=== PATIENT | female | born 1950 | race African-American/Black ===

== ENCOUNTER 2019-12-30 16:12 | Observation (INO) | payer MEDICARE, MEDICAID ==
[2019-12-30] MEDS ORDERED: HYDROcodone/Acetaminophen 5/325 mg Tablet ONE (16:38)
[2019-12-30 17:13] LABS: #Lymphocytes 1.6 thou/uL (1.20-3.40); #Neutrophils 6.6 thou/uL (1.40-6.50); %Basophils 0.3 % (0.0-1.0); %Eosinophils 0.2 % (0.0-10.0); %Neutrophils 71.5 % (42.0-75.0); Hemoglobin 10.7 g/dL (12.0-16.0); Mean Corpuscular HGB CONC 32.9 g/dL (32.0-36.0); Mean Corpuscular Hemoglobin 30.4 pg (27.0-31.0); Mean Corpuscular Volume 92.4 fL (78.0-98.0); Platelet Count 254 thou/uL (130-400); RBC Distribution Width 12.3 % (11.5-14.5); Red Blood Cell (RBC) Count 3.51 mill/uL (4.20-5.40); White Blood Cell (WBC) Count 9.3 thou/uL (4.8-10.8)
[2019-12-30 17:34] LABS: ALT (SGPT) 9 U/L (8-55); AST (SGOT) 11 U/L (5-34); Albumin 4.2 g/dL (3.4-4.8); Alkaline Phosphatase 117 U/L (40-110); Anion Gap 19 mmol/L (10-20); BUN (Urea Nitrogen) 27 mg/dL (9.8-20.1); Bilirubin, Total 0.4 mg/dL (0.2-1.2); CK (CPK) 66 U/L (29-168); Calc. Creatinine Clearance 0 mL/min (70-130); Calcium 9.9 mg/dL (7.8-10.44); Carbon Dioxide 22 mmol/L (23-31); Chloride 101 mmol/L (98-107); Estimated GFR-MDRD 28; Glucose 249 mg/dL (80-115); Potassium 4.2 mmol/L (3.5-5.1); Protein, Total 7.2 g/dL (6.0-8.3); Sodium 138 mmol/L (136-145)
--- NOTE | 2019-12-30 18:22 | RAD ---
RIGHT ELBOW FOUR VIEWS: History: Fall, pain. Comparison: None. FINDINGS: There is no specific joint effusion. Mild soft tissue swelling. Mildly impacted fracture of the lateral aspect of the radial neck. Chronic lateral and mediolateral epichonolitis. 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 IMPRESSION: Findings of a nondisplaced impacted fracture of the lateral margin of the radial neck. POS: HOME
--- NOTE | 2019-12-30 18:26 | RAD ---
LEFT FOOT THREE VIEWS: History: Pain Comparison: None FINDINGS: There is ossification of the adductor hallus tendon at the proximal phalanx base great toe. Non enthe sophytic changes of the calcaneus. No acute displaced fracture or malalignment. Enthesophytic changes of the peroneus brevis tendon at the fifth metatarsal tuberosity. IMPRESSION: Chronic findings. No acute displaced fracture or malalignment. POS: HOME
--- NOTE | 2019-12-30 18:27 | RAD ---
LEFT KNEE FOUR VIEWS: History: Fall, pain. Comparison: None. FINDINGS: Small joint effusion. No acute displaced fracture or malalignment. Mild medial compartment joint spac e narrowing. Proximal fibula is intact. IMPRESSION: Small effusion and adjacent soft tissue swelling likely from a contusion. No acute displaced fracture appreciated. POS: HOME
--- NOTE | 2019-12-30 20:19 | PDOC.FPRHP ---
- History of Present Illness Chief Complaint: Syncope History of Present Illness: 69yo F presents to the ED complaining of a syncopal event and fall in the last 2 days. Pt states 2 days ago she was getting up from the dinner table and made it a few feet before her vision went dark and she passed out. This was witnessed by her and he stated she was only down for a few seconds and immediately came back to being alert and oriented. Pt denies recalling any injuries from this event and did not tell her that she hit her head. The next day she was walking her dog when she got her feed crossed and fell onto and outstretched arm. Since then she has had left knee pain and right arm pain. She denies any LOC with this fall or head strike. Denies ever having syncope before. Denies any CP, SOB, diaphoresis with these episodes. No recent illnesses or sick contacts. ED Course: Received 5/325mg [place] - Allergies/Adverse Reactions Allergies Allergy/AdvReac Type Severity Reaction Status Date / Time No Known Drug Allergies Allergy Unverified 12/30/19 21:34 - Home Medications Medication Instructions Recorded Confirmed Type Albuterol Sulfate [Proair HFA] 2 inhaler NEB QID 12/30/19 12/30/19 History Bimatoprost [Lumigan] 1 drop EA EYE HS 12/30/19 12/30/19 History Carvedilol 1 tablet PO DAILY 12/30/19 12/30/19 History Colchicine 1 tablet PO PRN PRN 12/30/19 12/30/19 History Empagliflozin [Jardiance] 1 tablet PO DAILY 12/30/19 12/30/19 History Glimepiride [Amaryl] 1.5 tablet PO DAILY 12/30/19 12/30/19 History HYDROcodone/Acetaminophen 1 tablet PO QID 12/30/19 12/30/19 History [Hydrocodone-Acetamin 10-325 mg] Olmesartan/Hydrochlorothiazide 1 tablet PO BID 12/30/19 12/30/19 History [Olmesartan-Hctz 20-12.5 mg Tab] Olopatadine HCl [Pazeo] 1 drop EA EYE DAILY 12/30/19 12/30/19 History - History PMHx: DM II, HTN, HLD PSHx: x4 FHx: No significant Social: Denies any alcohol, tobacco, or illicit drug use - Review of Systems General: denies: fever/chills, weight/appetite/sleep changes Eyes: denies: eye pain, vision changes ENT: denies: nasal congestion, rhinorrhea Respiratory: denies: cough, shortness of breath Cardiovascular: denies: chest pain, palpitation, edema Gastrointestinal: denies: nausea, vomiting, diarrhea Genitourinary: denies: dysuria, polyuria Skin: denies: rashes, lesions Musculoskeletal: reports: pain (Right arm, left knee), swelling (left knee) Neurological: reports: syncope. denies: numbness, weakness Psychological: denies: anxiety, depression - Vital signs BP: 125/62, Pulse: 62, Resp: 17, Temp: 99.0 (Oral), Pain: 9, O2 sat: 98 on ( Room Air), Wt: 80.7 - Physical Exam Constitutional: NAD, awake, alert and oriented, well developed HEENT: normocephalic and atraumatic, EOMI Neck: supple, FROM Heart: RRR, normal S1/S2 Lungs: CTAB, no respiratory distress, good air movement Abdomen: soft, non-tender, bowel sounds present Musculoskeletal: normal structure -Musculoskeletal: Left knee swelling, decreased ROM 2/2 pain Right elbow painful ROM, no swelling or bruising Neurological: no focal deficit, CN II-XII intact, normal sensation Skin: no rash/lesions, capillary refill <2 seconds Heme/Lymphatic: no unusual bruising or bleeding, no purpura, no petechia Psychiatric: normal mood and affect, good judgment and insight, intact recent and remote memory FMR H&P: Results - Labs Result Diagrams: 12/31/19 04:23 12/31/19 04:23 Lab results: WBC 9.3 thou/uL (4.8-10.8) 12/30/19 16:58 Hgb 10.7 g/dL (12.0-16.0) L 12/30/19 16:58 Hct 32.4 % (36.0-47.0) L 12/30/19 16:58 MCV 92.4 fL (78.0-98.0) 12/30/19 16:58 Plt Count 254 thou/uL (130-400) 12/30/19 16:58 Neutrophils % 71.5 % (42.0-75.0) 12/30/19 16:58 Sodium 138 mmol/L (136-145) 12/30/19 16:58 Potassium 4.2 mmol/L (3.5-5.1) 12/30/19 16:58 Chloride 101 mmol/L (98-107) 12/30/19 16:58 Carbon Dioxide 22 mmol/L (23-31) L 12/30/19 16:58 BUN 27 mg/dL (9.8-20.1) H 12/30/19 16:58 Creatinine 2.13 mg/dL (0.6-1.1) H 12/30/19 16:58 Glucose 249 mg/dL (80-115) H 12/30/19 16:58 Calcium 9.9 mg/dL (7.8-10.44) 12/30/19 16:58 Total Bilirubin 0.4 mg/dL (0.2-1.2) 12/30/19 16:58 AST 11 U/L (5-34) 12/30/19 16:58 ALT 9 U/L (8-55) 12/30/19 16:58 Alkaline Phosphatase 117 U/L (40-110) H 12/30/19 16:58 Creatine Kinase 66 U/L (29-168) 12/30/19 16:58 Serum Total Protein 7.2 g/dL (6.0-8.3) 12/30/19 16:58 Albumin 4.2 g/dL (3.4-4.8) 12/30/19 16:58 - EKG Interpretation EK lead EKG shows normal sinus rhythm, Rate (beats per minute): 69, with no ectopics, Interpretation: normal EKG, Conduction normal, ST segments normal, T waves normal, [place] normal, Clinical impression: Normal EKG. - Radiology Interpretation Other Status: report reviewed by me (Left knee: Small effusion and adjacent soft tissue swelling likely from a contusion. No acute displaced fracture appreciated. Left foot: Chronic findings. No acute displaced fracture or malalignment. Right elbow: Findings of a nondisplaced impacted fracture of the lateral margin of the radial neck.) FMR H&P: A/P - Problem List (1) Radial neck fracture Current Visit: Yes Status: Acute Qualifiers: Encounter type: initial encounter Fracture type: closed Fracture alignment: nondisplaced Laterality: right Qualified Code(s): S52.134A - Nondisplaced fracture of neck of right radius, initial encounter for closed fracture (2) Acute kidney injury Current Visit: Yes Status: Acute Code(s): N17.9 - ACUTE KIDNEY FAILURE, UNSPECIFIED (3) Syncope due to orthostatic hypotension Current Visit: Yes Status: Acute Code(s): I95.1 - ORTHOSTATIC HYPOTENSION (4) DM hyperosmolarity type II, uncontrolled Current Visit: Yes Status: Acute Code(s): E11.00 - TYPE 2 DIAB W HYPROSM W/ O NONKET HYPRGLY-HYPROS COMA (N[facility]); E11.65 - TYPE 2 DIABETES MELLITUS WITH HYPERGLYCEMIA (5) Anemia Current Visit: Yes Status: Acute Code(s): D64.9 - ANEMIA, UNSPECIFIED - Plan Syncope - likely 2/2 orthostatic hypotension - Hx consistent with orthostasis - Include orthostatics in vitals - Will road test intermittently TOMEKA - Cr: 2.13 - No known renal disease hx - FeNa, UA, urine prot - Will hold jardiance, and JODIE/HCTZ combo - Avoid nephrotoxic drugs - Trend BMP - LR @ 150 DM II - Resume home glimepiride - A1c ordered - Mild and bedtime SSI - Hold jardiance Radial neck fracture - Immobilize right arm with sling - Consider ortho consult/call tomorrow for recs and f/u Anemia - Fe, Ferritin, TIBC IVF: LR @ 150 Diet: CC VTE: SCD Code: Full Dispo: Admit to tele obs for monitoring of renal function and hearth rate/ rhythm. ELOS <48hr PCP: [facility] FMR H&P: [place] - Pertinent history Pt reports getting up to get coffee in the kitchen and then she blacked out. Pt denied any chest pain, SOB prior. Denied any recent illness. Denied any fever or chills. Pt reports never having anything like this before. Pt denies ever having issues with kidneys that she knows of. - Pertinent findings Cardio: RRR, no murmurs or gallops Resp: CTA-B, no wheezes or crackles MSK: pt R. elbow mildly swollen. Pt has good ROM. No loss of sensation. Pt Left knee swollen. Has some decreased ROM due to pain. Ext: No edema noted - Plan Date/Time: 12/30/192013 I, Winston Simons, PGY-3, have evaluated this patient and agree with findings/ plan as outlined by tax services intern resident. Pertinent changes/additions are listed here. I have reviewed the above plan and made edits as needed. I agree with above. Will admit pt overnight for tele obs 2/2 syncopal episode. Will check orthostatic BP. Cr elevated. Will rehydrate with IVF and monitor. We will trend trops and further workup if they become elevated. At this time believe to be related to mild dehydration and TOMEKA. Addendum - Attending - Attending Attestation Date/Time: 12/30/19 [id number] I personally evaluated the patient and discussed the management with Dr. Roth I agree with the History, Examination, Assessment and Plan documented above with any addition or exceptions noted below - 69yo F with h/o DM, HTN, HLD presents to the ED after a syncopal event and fall in the last 2 days. Pt states 2 days ago she was getting up from the dinner table and made it a few feet before her vision went dark and she passed out. This was witnessed by her and he stated she was only down for a few seconds and immediately came back to being alert and oriented. Pt denies recalling any injuries from this event and did not tell her that she hit her head. The next day she was walking her dog when she got her feet crossed and fell onto and outstretched arm. Since then she has had left knee pain and right arm pain. She denies any LOC with this fall or head strike. Denies ever having syncope before. Denies any CP, SOB, diaphoresis with these episodes. No recent illnesses or sick contacts. PMH/PSH/Meds/SH reviewed and agree with resident's documentation. Afebrile VSS Exam repeated by me and agree with resident's findings. Labs: H/H= 10.7/32.4, Rb=306, K=4.2, BUN/Cr=27/2.13, Xdey=626, trop<0.010 X-ray right elbow - nondisplaced impacted fracture of lateral radial neck; left knee - small effusion and soft tissue swelling; left foot - chronic changes no acute findings. A/P: 1) Syncope - Place in obs. Possibly secondary to orthostasis- no h/o renal disease and has elevated Cr. Will check orthostatoc BP and hydrate overnight. Recheck labs in AM. 2) TOMEKA- will check urine studies then start IVfluids. Recheck labs in AM. 3) DM- monitor BG; hold mnetformin and jardiance for now.
[2019-12-30 20:49] LABS: Troponin I Less than 0.010 ng/mL (< 0.028)
[2019-12-30] MEDS ORDERED: Ondansetron ODT 4 MG TAB SL PRN (21:34)
[2019-12-30] MEDS ORDERED: Acetaminophen 325 MG TAB PO PRN ×2 (21:34→21:43)
[2019-12-30] MEDS ORDERED: Ondansetron PF 4 MG/2 ML Vial IVP PRN (21:34)
[2019-12-30] MEDS ORDERED: HYDROcodone/Acetaminophen 5/325 mg Tablet PO PRN (21:43)
[2019-12-30 23:10] LABS: Hemoglobin A1c 11.8 % (4.0-6.0)
[2019-12-30 23:27] LABS: Iron 16 ug/dL (50-170); Iron Binding Capacity, Total 220 mcg/dL (265-497)
[2019-12-30 23:47] LABS: Ferritin 401.35 ng/mL (10-291); Thyroid Stimulating Hormone 1.7987 uIU/mL (0.35-4.94)
[2019-12-30 23:48] LABS: Troponin I 0.011 ng/mL (< 0.028)
[2019-12-31] MEDS ORDERED: PROVENTIL INHALER 6.7 G (200 INHALATIONS) INH PRN (00:12)
[2019-12-31] MEDS: Lactated Ringer's 1,000 ML IV SCH ×4 (00:42→20:29)
[2019-12-31] MEDS ORDERED: Dextrose 5% in Water 1,000 ML IV PRN (00:43)
[2019-12-31] MEDS ORDERED: Dextrose 50% Abboject 50 ML SYRINGE SLOW IVP PRN (00:43)
[2019-12-31] MEDS ORDERED: HumaLOG 300 UNITS/3 ML VIAL SC PRN (00:43)
[2019-12-31 05:10] LABS: #Eosinphils 0.1 thou/uL (0.0-0.7); #Lymphocytes 2.4 thou/uL (1.20-3.40); #Neutrophils 5.3 thou/uL (1.40-6.50); %Basophils 0.4 % (0.0-1.0); %Eosinophils 0.7 % (0.0-10.0); %Lymphocytes 27.9 % (21.0-51.0); %Monocytes 11.2 % (0.0-10.0); %Neutrophils 59.9 % (42.0-75.0); Hemoglobin 10.6 g/dL (12.0-16.0); Mean Corpuscular HGB CONC 31.4 g/dL (32.0-36.0); Mean Corpuscular Hemoglobin 29.3 pg (27.0-31.0); Mean Corpuscular Volume 93.1 fL (78.0-98.0); Mean Platelet Volume 8.2 fL (7.4-10.4); Platelet Count 243 thou/uL (130-400); RBC Distribution Width 12.4 % (11.5-14.5); White Blood Cell (WBC) Count 8.8 thou/uL (4.8-10.8)
[2019-12-31 05:32] LABS: Anion Gap 17 mmol/L (10-20); BUN (Urea Nitrogen) 28 mg/dL (9.8-20.1); Calc. Creatinine Clearance 0 mL/min (70-130); Calcium 9.8 mg/dL (7.8-10.44); Carbon Dioxide 21 mmol/L (23-31); Chloride 103 mmol/L (98-107); Estimated GFR-MDRD 36; Glucose 166 mg/dL (80-115); Potassium 3.6 mmol/L (3.5-5.1); Sodium 137 mmol/L (136-145)
[2019-12-31 06:24] LABS: Bacteria/HPF None Seen HPF (None Seen); Bilirubin Negative (Negative); Blood, Urine Negative (Negative); Clarity Clear (Clear); Glucose, Urine (Dipstick) Greater than 1000 mg/dL (Negative); Leukocyte 250 Leu/uL (Negative); Nitrite Negative (Negative); Protein, Urine (Dipstick) Negative (Neg-Trace); RBC/HPF 0-3 HPF (0-3); Squamous Epithelial 0-3 HPF (0-3); Urobilinogen Normal mg/dL (Less than 2); WBC/HPF 21-50 HPF (0-3)
[2019-12-31 06:26] LABS: Urine Culture Reflex Yes Yes
[2019-12-31 06:45] LABS: Protein, Urine Random Quant Less than 10 mg/dL (1-14); Sodium, Urine 50 mmol/L (Not Available)
--- NOTE | 2019-12-31 06:55 | PDOC.FM ---
- Subjective Subjective: Patient resting in bed this morning, complains of left knee pain and right arm pain rated both 10 out of 10 in severity. Also states she feels thirsty. Denies ever having been on insulin in the past for DM management from PCP. Denies any fever, cough, congestion, SOB, chest pain, abdominal pain, n/v. Did state she felt a little dizzy before falling but does not remember much about why she may have fallen. - Objective MAR Reviewed: Yes Vital Signs & Weight: Vital Signs (12 hours) Temp Pulse Resp BP BP BP BP 12/31/19 03:19 99.1 F 66 14 160/72 H 12/31/19 00:59 99.0 F 15 171/76 H 12/31/19 00:00 12/30/19 23:53 99.0 F 61 15 184/81 H 12/30/19 21:43 161/68 H 146/73 H 147/69 H Pulse Ox 12/31/19 03:19 94 L 12/31/19 00:59 95 12/31/19 00:00 95 12/30/19 23:53 95 12/30/19 21:43 Weight Weight 78.018 kg Result Diagrams: 12/31/19 04:23 12/31/19 04:23 Phys Exam - Physical Examination Constitutional: NAD HEENT: sclera anicteric dry mucous membranes Neck: no JVD, supple Respiratory: no wheezing, clear to auscultation bilateral Cardiovascular: RRR, no significant murmur Gastrointestinal: soft, non-tender, positive bowel sounds Musculoskeletal: pulses present 2+ edema in left knee with TTP grossly. 1+ edema around right elbow. Neurological: normal sensation, moves all 4 limbs Psychiatric: normal affect, A&O x 3 Skin: no rash, normal turgor Dx/Plan (1) DM hyperosmolarity type II, uncontrolled Code(s): E11.00 - TYPE 2 DIAB W HYPROSM W/O NONKET HYPRGLY-HYPROS COMA ([facility]); E11.65 - TYPE 2 DIABETES MELLITUS WITH HYPERGLYCEMIA Status: Acute (2) Radial neck fracture Status: Acute Qualifiers: Encounter type: initial encounter Fracture type: closed Fracture alignment: nondisplaced Laterality: right Qualified Code(s): S52.134A - Nondisplaced fracture of neck of right radius, initial encounter for closed fracture (3) Syncope due to orthostatic hypotension Code(s): I95.1 - ORTHOSTATIC HYPOTENSION Status: Acute - Plan Plan: Patient is a 69 yo female with PMHx of DM2, HTN, HLD who presents after syncopal episode: #Syncope - likely 2/2 orthostatic hypotension - Hx consistent with orthostasis - Include orthostatics in vitals - Will road test intermittently #TOMEKA - Cr: 2.13 > 1.73 this AM, will continue IVF - No known renal disease hx - FeNa, UA, urine prot pending - Will hold jardiance, and JODIE/HCTZ combo - Avoid nephrotoxic drugs - Trend BMP - LR @ 150 #DM II - Resume home glimepiride - A1c 11.8% - Mild and bedtime SSI - Hold jardiance - Plan to start Lantus #Radial neck fracture - Immobilize right arm with sling - Consider ortho consult/call for recs and outpt f/u #Anemia - Fe 16 (low), Ferritin 401 (high), TIBC 220 (low) - consider starting iron supplement with Vitamin C IVF: LR @ 150 Diet: CC VTE: SCD Code: Full Dispo: Stable, Admit to tele obs for monitoring of renal function and hearth rate/rhythm. Anticipate discharge in <48hr. PCP: Anil Claudio Addendum - Attending - Attending Attestation Date/Time: 12/31/19 [id number] I personally evaluated the patient and discussed the management with Dr. Waldrop I agree with the History, Examination, Assessment and Plan documented above with any addition or exceptions noted below. Patient last contact with brother who passed of COVID was 5 months ago. No concern at this time. Monitor renal function. Possible d/c tomorrow.
[2019-12-31] MEDS: HYDROcodone/Acetaminophen 10/325 mg Tablet PO SCH ×4 (08:04→20:41)
[2019-12-31] MEDS ORDERED: Morphine 2 MG/ML SYRINGE SLOW IVP PRN (08:50)
[2019-12-31] MEDS ORDERED: Insulin Glargine 10 UNITS in Pre-Filled Syringe 1 EACH SC SCH (09:30)
[2019-12-31] MEDS: Ketotifen Fumarate 0.025% Ophth Soln 5 ml Bottle EA EYE SCH ×2 (10:14→20:43)
[2019-12-31] MEDS: Ferrous Sulfate 325 MG TAB PO SCH (10:15)
[2019-12-31] MEDS: Glimepiride 4 MG TAB PO SCH (10:16)
[2019-12-31] MEDS: Carvedilol 25 MG TAB PO SCH (10:17)
[2019-12-31] MEDS: Ascorbic Acid 500 mg Chewable Tablet PO SCH (10:23)
[2019-12-31] MEDS ORDERED: Albuterol Sulfate 2.5 mg/3 ml Neb NEB PRN (11:06)
[2019-12-31] MEDS: HumaLOG 300 UNITS/3 ML VIAL SC PRN (11:38)
[2019-12-31] MEDS ORDERED: Latanoprost 0.005% Ophth Soln 2.5 ml Bottle EA EYE SCH (21:00)
[2020-01-01] MEDS: Lactated Ringer's 1,000 ML IV SCH ×3 (00:07→14:00)
[2020-01-01 04:37] LABS: #Eosinphils 0.1 thou/uL (0.0-0.7); #Lymphocytes 1.8 thou/uL (1.20-3.40); #Monocytes 1.2 thou/uL (0.11-0.59); #Neutrophils 5.9 thou/uL (1.40-6.50); %Basophils 0.1 % (0.0-1.0); %Eosinophils 0.9 % (0.0-10.0); %Monocytes 13.5 % (0.0-10.0); %Neutrophils 65.4 % (42.0-75.0); Hemoglobin 10.3 g/dL (12.0-16.0); Mean Corpuscular Volume 93.7 fL (78.0-98.0); Mean Platelet Volume 7.8 fL (7.4-10.4); Platelet Count 262 thou/uL (130-400); RBC Distribution Width 12.3 % (11.5-14.5); Red Blood Cell (RBC) Count 3.44 mill/uL (4.20-5.40)
[2020-01-01 05:02] LABS: ALT (SGPT) 13 U/L (8-55); AST (SGOT) 25 U/L (5-34); Albumin 3.6 g/dL (3.4-4.8); Alkaline Phosphatase 135 U/L (40-110); Anion Gap 13 mmol/L (10-20); BUN (Urea Nitrogen) 20 mg/dL (9.8-20.1); Bilirubin, Total 0.4 mg/dL (0.2-1.2); Calc. Creatinine Clearance 54 mL/min (70-130); Calcium 10.1 mg/dL (7.8-10.44); Carbon Dioxide 25 mmol/L (23-31); Chloride 102 mmol/L (98-107); Estimated GFR-MDRD 53; Globulin 3.4 g/dL (2.4-3.5); Glucose 116 mg/dL (80-115); Potassium 3.7 mmol/L (3.5-5.1); Sodium 136 mmol/L (136-145)
--- NOTE | 2020-01-01 06:46 | PDOC.FM ---
- Subjective Subjective: Patient continues to report severe pain in her left knee and ankle, rates 8-10 out of 10. Says having moderate pain in right arm and this improves when wearing her sling. Unable to bear weight yesterday with nursing staff or PT staff. Denies any chest pain, palpitations, abdominal pain, nausea, vomiting, headache. - Objective MAR Reviewed: Yes Vital Signs & Weight: Vital Signs (12 hours) Temp Pulse Resp BP BP BP Pulse Ox 01/01/20 04:00 98.9 F 75 18 189/86 H 97 01/01/20 03:41 98.9 F 75 18 189/86 H 97 01/01/20 00:00 99.6 F 75 16 158/75 H 158/75 H 96 12/31/19 20:00 98.4 F 67 17 172/77 H 172/77 H 97 Weight Admit Weight 78.018 kg Weight 77.655 kg I&O: 12/30/19 12/31/19 01/01/20 06:59 06:59 06:59 Intake Total 2745 Output Total 700 Balance 2044 Result Diagrams: 01/01/20 04:08 01/01/20 04:08 Phys Exam - Physical Examination Constitutional: NAD HEENT: moist MMs, sclera anicteric Neck: no JVD, supple, full ROM Respiratory: no wheezing, clear to auscultation bilateral Cardiovascular: RRR, no significant murmur Gastrointestinal: soft, positive bowel sounds Musculoskeletal: pulses present 2+ edema in L knee & ankle, 1+ edema in R elbow, TTP in these regions Neurological: normal sensation, moves all 4 limbs Psychiatric: normal affect, A&O x 3 Skin: no rash, normal turgor Dx/Plan (1) DM hyperosmolarity type II, uncontrolled Code(s): E11.00 - TYPE 2 DIAB W HYPROSM W/O NONKET HYPRGLY-HYPROS COMA (N[facility]); E11.65 - TYPE 2 DIABETES MELLITUS WITH HYPERGLYCEMIA Status: Acute (2) Radial neck fracture Status: Acute Qualifiers: Encounter type: initial encounter Fracture type: closed Fracture alignment: nondisplaced Laterality: right Qualified Code(s): S52.134A - Nondisplaced fracture of neck of right radius, initial encounter for closed fracture (3) Syncope due to orthostatic hypotension Code(s): I95.1 - ORTHOSTATIC HYPOTENSION Status: Acute - Plan Plan: Patient is a 69 yo female with PMHx of DM2, HTN, HLD who presents after syncopal episode: #Syncope - likely 2/2 orthostatic hypotension - Hx consistent with orthostasis - Include orthostatics in vitals-unable to assess standing, but BP change of < 20 systolic between supine to sittign - Will road test intermittently - PT/OT consulted to eval/treat #TOMEKA - Cr: 2.13 > 1.73> 1.23 this AM, will continue IVF - No known renal disease hx - Urine Na 50, Urine protein <10, UOsm 563, UCr 61.9, UA neg - Will hold jardiance, and JODIE/HCTZ combo - Avoid nephrotoxic drugs - Trend BMP - LR @ 150 #DM II - Resume home glimepiride - A1c 11.8% - Mild and bedtime SSI - Hold jardiance - Lantus 10 units daily started 12/30 - monitor ACHS accuchecks #Radial neck fracture - Immobilize right arm with sling - PT/OT consulted-recommend placement in rehabilitation center for continued therapy, will discuss with patient this AM -patient willing to go to inpatient rehab facility for further therapy -Post Acute screening placed on 12/31 with CM consult as well #Anemia - Fe 16 (low), Ferritin 401 (high), TIBC 220 (low) - started iron supplement with Vitamin C on 12/30 IVF: LR @ 150 Diet: CC VTE: SCD Code: Full Dispo: Stable, Admit to tele obs for monitoring of renal function and hearth rate/rhythm. Anticipate discharge in <48hr. PCP: Anil Claudio Addendum - Attending - Attending Attestation Date/Time: 01/01/20 1401 I personally evaluated the patient and discussed the management with Dr. Waldrop. I agree with the History, Examination, Assessment and Plan documented above with any addition or exceptions noted below. No acute changes with knee overnight. Cr improving but will reach out to PCP to find baseline Cr. Rehab screen placed. Can d/c to rehab once approved.
[2020-01-01 08:02] VITALS: BMI 29.0
[2020-01-01] MEDS: Insulin Glargine 10 UNITS in Pre-Filled Syringe 1 EACH SC SCH ×2 (08:31→14:56)
[2020-01-01] MEDS: Ketotifen Fumarate 0.025% Ophth Soln 5 ml Bottle EA EYE SCH (08:32)
[2020-01-01] MEDS: Glimepiride 4 MG TAB PO SCH (08:33)
[2020-01-01] MEDS: Ascorbic Acid 500 mg Chewable Tablet PO SCH (08:33)
[2020-01-01] MEDS: Carvedilol 25 MG TAB PO SCH (08:33)
[2020-01-01] MEDS: Ferrous Sulfate 325 MG TAB PO SCH (08:33)
[2020-01-01] MEDS: HYDROcodone/Acetaminophen 10/325 mg Tablet PO SCH (11:28)
[2020-01-01] MEDS: HumaLOG 300 UNITS/3 ML VIAL SC PRN (14:04)
[2020-01-01 15:02] VITALS: TEMP 98.7
[2020-01-01 15:25] VITALS: BP 147/68
[2020-01-01] MEDS ORDERED: Carvedilol 25 MG TAB PO SCH (21:00)
--- NOTE | 2020-01-01 21:08 | DIS ---
DATE OF ADMISSION: 12/30/2019 DATE OF DISCHARGE: 01/01/2020 RESIDENT: Dian Waldrop DO ADMITTING ATTENDING: Nadia Kenney MD DISCHARGE ATTENDING: Familia Vsos MD CONSULTS: 1. Case Management. 2. Occupational Therapy. 3. Physical Therapy. PROCEDURES: 1. Foot x-ray on December 30, 2019: Chronic findings. No acute displaced fracture or malalignment. 2. Knee x-ray on December 30, 2019: Left knee shows small effusion and adjacent soft tissue swelling, likely from a contusion. No acute displaced fracture appreciated. 3. Elbow x-ray on December 30, 2019. Right elbow shows findings of a nondisplaced impacted fracture of the lateral margin of the radial neck. PRIMARY DIAGNOSES: 1. Syncope, likely secondary to orthostatic hypotension. SECONDARY DIAGNOSES: 2. Acute kidney injury. 3. Diabetes mellitus, type 2. 4. Radial neck fracture. 5. Iron-deficiency anemia. DISCHARGE MEDICATIONS: 1. Acetaminophen 650 mg p.o. q.4 hour p.r.n. 2. Vitamin C 500 mg p.o. daily. 3. Carvedilol 25 mg p.o. b.i.d. 4. Ferrous sulfate 325 mg p.o. daily. 5. Insulin glargine 10 units subcu q.a.m. 6. Albuterol sulfate two puffs inhaled via nebulizer q.i.d. 7. Bimatoprost drops, one drop each eye at bedtime. 8. Colchicine 0.6 mg p.o. p.r.n. 9. Jardiance 10 mg p.o. daily. 10. Glimepiride 4 mg tablets, 1.5 tablets p.o. daily. 11. [place] 10-325 mg one tablet p.o. q.i.d. 12. Pazeo drops, one drop each eye daily. DISCONTINUED MEDICATIONS: 1. Olmesartan/hydrochlorothiazide 20-12.5 mg tablets, one tablet p.o. b.i.d. 2. Carvedilol 25 mg p.o. daily (increased dosing to BID) HISTORY OF PRESENT ILLNESS/HOSPITAL COURSE: Patient is a 69-year-old female, who presents to the emergency department complaining of a syncopal event and fall in the last 2 days. Patient states two days ago, she was getting up from the dinner table and made it a few feet before her vision went dark and she passed out. This was witnessed by her and he stated she was only down for a few seconds and immediately came back to being alert and oriented. Patient denies recalling any injuries from this event and her did not tell her that she hit her head. The next day, she was walking her dog when her feet got crossed and she fell onto an outstretched arm. Since then, she has had left knee pain and right arm pain. She denies any loss of consciousness with this fall or hitting her head. Denies ever having had syncope before. She denies any current chest pain, shortness of breath, diaphoresis with any of these episodes. No recent illnesses or sick contacts. In the emergency department, she received 1 tablet of [place] 5/325 mg. Patient was admitted for observation on the telemetry unit for further monitoring of renal function and her heart. Upon arrival to the floor, patient's history was deemed consistent with orthostasis. She had also reported further history that she had not been eating or drinking much over the past several days. Orthostatic vitals were attempted with sitting and supine positions with no significant change in blood pressure. Patient was unable to stand for standing blood pressure. Initially, the patient had a creatinine of 2.13, IV fluids were started and this trended down eventually to 1.23 which is near her baseline. Additionally, patient had very elevated blood sugars, greater than 300, on admission. Patient denies ever having been on insulin before. She was started on a mild bedtime sliding scale in addition to Lantus 10 units daily. This will need to be further titrated as an outpatient. Patient's x-rays were consistent with a radial neck fracture of the right arm. Patient reported an improvement in pain control when immobilized with a sling. Patient continued to report severe pain in her left knee and ankle with moderate swelling. However, patient was able to move and lift her leg in the bed with no obvious deficits on exam. X-rays were negative for any acute fracture. Patient was evaluated by Physical Therapy and Occupational Therapy who deemed that she would benefit from an inpatient rehab stay. On the morning of January 01, 2020, the patient was deemed clinically stable for transfer to inpatient rehab facility. [facility] Of note during the stay, the patient was found to have an iron- deficiency anemia. She was started on iron supplement with vitamin C daily on December 30, which will need to be continued as an outpatient. Additionally, the patient's blood pressures were consistently elevated in 180s systolic over 90s diastolic. Her Coreg dosing was increased from daily to b.i.d. dosing during this stay. DISPOSITION: Stable. DISCHARGE INSTRUCTIONS: 1. Location: [facility] in [place], [place]. 2. Diet: Heart healthy. 3. Activity: As tolerated. 4. Continue physical therapy and occupational therapy. 5. Follow up with PCP in 3 to 5 days after leaving rehab facility. Job ID: [id number] MTDD
--- NOTE | 2020-01-04 13:59 | EKG ---
Test Reason : SYNCOPE Blood Pressure : / mmHG Vent. Rate : 069 BPM Atrial Rate : 069 BPM P-R Int : 144 ms QRS Dur : 078 ms QT Int : 428 ms P-R-T Axes : 058 008 018 degrees QTc Int : 458 ms Normal sinus rhythm Normal ECG Confirmed by SHELBY DUARTE DO ([id number]), news assignment editor ASHLI ARZATE ([id number]) on 01/04/2020 1:59:18 PM Referred By: Confirmed By:SHELBY DUARTE DO
== END 2020-01-01 17:49 ==
LOC: ERS 16:12 → 2NO 19:55
PROVIDERS: ADMIT Family Medicine; ATTEND Family Medicine
DX: R55 Syncope and collapse (principal); N17.9 Acute kidney failure, unspecified; E11.00 Type 2 diabetes mellitus with hyperosmolarity without nonketotic hyperglycemic-hyperosmolar coma (NKHHC); E11.65 Type 2 diabetes mellitus with hyperglycemia; S52.134A Nondisplaced fracture of neck of right radius, initial encounter for closed fracture; D50.9 Iron deficiency anemia, unspecified; I10 Essential (primary) hypertension; E78.5 Hyperlipidemia, unspecified; M25.462 Effusion, left knee; Z79.84 Long term (current) use of oral hypoglycemic drugs; Z79.899 Other long term (current) drug therapy; W19.XXXA Unspecified fall, initial encounter; Y93.K1 Activity, walking an animal
CPT/HCPCS: 73080; 73564; 73630; 80048; 80053; 81001; 82550; 82570; 82728; 82962 ×2; 83036; 83540; 83550; 83930; 83935; 84156; 84300; 84484 ×2; 85025 ×2; 87086; 93005; 96374; 97110; 97139 ×5; 97530 ×3; 99285; G0378 ×4; J1815 ×2; J2270; 36415; 36416; 84443